=== PATIENT | male | born 1975 | race African-American/Black ===

== ENCOUNTER 2020-04-13 14:44 | Emergency (ER) | payer SELFPAY ==
--- NOTE | 2020-04-13 15:35 | ER Document Report ---
ED Medical Screen (RME) - General Chief Complaint: Shoulder Pain Stated Complaint: SHOULDER PAIN Time Seen by Provider: 04/13/20 15:24 Mode of Arrival: Wheelchair Information source: Patient Notes: 45-year-old male presented to ED for complaint of pain to the left shoulder and chest. He states he feels like he has a dislocated shoulder and he also has pain to the left chest area. 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 He is on Xarelto. His pulse is in the 60s. 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 He is a former smoker he just recently quit. He does drink alcohol about monthly and smokes marijuana daily. He is alert oriented respirations regular nonlabored speaking in full sentences. Blood pressure when I rechecked it was 152/90 in the right arm I have greeted and performed a rapid initial assessment of this patient. A comprehensive ED assessment and evaluation of the patient, analysis of test results and completion of medical decision making process will be conducted by an additional ED providers. - Related Data Allergies/Adverse Reactions: banana Allergy (Verified 04/13/20 15:19) Penicillins Allergy (Verified 04/13/20 15:19) Past Medical History - Social History Frequency of alcohol use: Rare Drug Abuse: Marijuana Physical Exam - Vital signs Vitals: Temp Pulse Resp BP Pulse Ox 98.4 F 65 18 163/103 H 97 04/13/20 15:19 04/13/20 15:19 04/13/20 15:19 04/13/20 15:19 04/13/20 15:19 Course - Vital Signs Vital signs: Temp Pulse Resp BP Pulse Ox 98.4 F 65 18 152/90 H 97 04/13/20 15:19 04/13/20 15:19 04/13/20 15:19 04/13/20 15:30 04/13/20 15:19
[2020-04-13 16:09] LABS: ABSOLUTE EOSINOPHILS # (AUTO) 0.1 10^3/uL (0.0-0.6); ABSOLUTE LYMPHOCYTES (AUTO) 2.2 10^3/uL (0.5-4.7); ABSOLUTE MONOCYTES (AUTO) 0.7 10^3/uL (0.1-1.4); ABSOLUTE NEUT (AUTO) 3.7 10^3/uL (1.7-8.2); BASOPHILS % (AUTO) 0.5 % (0-2); EOSINOPHILS % (AUTO) 2.2 % (0-6); HEMATOCRIT 38.8 % (37.9-51.0); HEMOGLOBIN 12.7 g/dL (13.5-17.0); LYMPHOCYTES % (AUTO) 32.9 % (13-45); MEAN CORPUSCULAR HEMOGLOBIN 24.2 pg (27.0-33.4); MEAN CORPUSCULAR HGB CONC 32.8 g/dL (32.0-36.0); MEAN CORPUSCULAR VOLUME 74 fl (80-97); MONOCYTES % (AUTO) 9.9 % (3-13); PLATELET COUNT 208 10^3/uL (150-450); RED BLOOD COUNT 5.26 10^6/uL (4.35-5.55); RED CELL DISTRIBUTION WIDTH 15.7 % (11.5-14.0); SEGMENTED NEUTROPHILS % (AUTO) 54.5 % (42-78); TOTAL CELLS COUNTED % (AUTO) 100 %; WHITE BLOOD COUNT 6.8 10^3/uL (4.0-10.5)
--- NOTE | 2020-04-13 16:13 | RADIOLOGY REPORT (SQ) ---
EXAM DESCRIPTION: CHEST 2 VIEWS IMAGES COMPLETED DATE/TIME: 04/13/2020 4:03 pm REASON FOR STUDY: chest pain COMPARISON: None. EXAM PARAMETERS: NUMBER OF VIEWS: two views TECHNIQUE: Digital Frontal and Lateral radiographic views of the chest acquired. RADIATION DOSE: NA LIMITATIONS: none FINDINGS: LUNGS AND PLEURA: No opacities, masses or pneumothorax. No pleural effusion. MEDIASTINUM AND HILAR STRUCTURES: No masses or contour abnormalities. HEART AND VASCULAR STRUCTURES: Heart normal size. No evidence for failure. BONES: No acute findings. HARDWARE: None in the chest. OTHER: No other significant finding. IMPRESSION: 1. NO ACUTE RADIOGRAPHIC FINDING IN THE CHEST. TECHNICAL DOCUMENTATION: JOB ID: [id number] 2010 [employer]- All Rights Reserved Reading location - IP/workstation name: [email or web address]
--- NOTE | 2020-04-13 16:15 | RADIOLOGY REPORT (SQ) ---
EXAM DESCRIPTION: SHOULDER LEFT 2 OR MORE VIEWS IMAGES COMPLETED DATE/TIME: 04/13/2020 4:03 pm REASON FOR STUDY: Left shoulder feels dislocated pain COMPARISON: None. NUMBER OF VIEWS: Three views. TECHNIQUE: Internal rotation, external rotation, and Y view images acquired of the left shoulder. LIMITATIONS: Limited examination on the Y-view due to patient positioning. FINDINGS: MINERALIZATION: Normal. BONES: No acute fracture. No worrisome bone lesions. JOINTS: Limited position on the wire image due to patient positioning. VISUALIZED LUNGS AND RIBS: No pneumothorax. No rib fracture. SOFT TISSUES: No radiopaque foreign body. OTHER: No other significant finding. IMPRESSION: 1. No acute osseous findings. Additional imaging if clinically indicated. TECHNICAL DOCUMENTATION: JOB ID: [id number] 2010 [employer]- All Rights Reserved Reading location - IP/workstation name: [email or web address]
[2020-04-13 16:35] LABS: ALKALINE PHOSPHATASE 65 U/L (38-126); ANION GAP 6 (5-19); ASPARTATE AMINO TRANSFERASE 49 U/L (17-59); BILIRUBIN,DIRECT 0.3 mg/dL (0.0-0.4); BILIRUBIN,TOTAL 0.7 mg/dL (0.2-1.3); BLOOD UREA NITROGEN 17 mg/dL (7-20); CALCIUM 9.4 mg/dL (8.4-10.2); CARBON DIOXIDE 32 mmol/L (22-30); CHLORIDE 105 mmol/L (98-107); GLUCOSE 95 mg/dL (75-110); POTASSIUM 3.5 mmol/L (3.6-5.0); TOTAL PROTEIN 7.3 g/dL (6.3-8.2)
--- NOTE | 2020-04-13 16:46 | EKG REPORT ---
SEVERITY:- NORMAL ECG - SINUS RHYTHM : Confirmed by: Shiv Mendoza MD 13-Apr-2020 16:45:25
[2020-04-13] MEDS ORDERED: ACETAMINOPHEN 325 MG TABLET PO ONE (20:52)
--- NOTE | 2020-04-13 21:48 | RADIOLOGY REPORT (SQ) ---
CT CHEST ANGIOGRAPHY WITHOUT THEN WITH IV CONTRAST HISTORY: Shortness of breath. COMPARISON: None. TECHNIQUE: CT angiogram of the chest with IV contrast. 3-D MIP images were obtained in coronal and sagittal reconstructions. This exam was performed according to our departmental dose-optimization program, which includes automated exposure control, adjustment of the mA and/or kV according to patient size and/or use of iterative reconstruction technique. FINDINGS: No filling defects are identified in the pulmonary trunk, main left and right pulmonary arteries, or the segmental branches. There are 1.5 cm hypodense nodules in the bilateral thyroid lobes. No mediastinal or hilar adenopathy. The heart size is normal without pericardial effusion. The thoracic aorta is normal caliber. No consolidation, pleural effusion, or pneumothorax is identified. The visualized upper abdomen demonstrates no acute findings. No acute osseous findings are seen. IMPRESSION: 1. No acute pulmonary embolism. 2. Clear lungs. 3. 1.5 cm incidental thyroid nodule. Recommend thyroid US. Reference: J Am Porfirio Radiol. 2015 Sep;12(2): 143-50
--- NOTE | 2020-04-13 22:04 | ER Document Report ---
ED Extremity Problem, Upper - General Chief Complaint: Chest Pain > 30 Stated Complaint: SHOULDER PAIN Time Seen by Provider: 04/13/20 15:24 Primary Care Provider: JOSS TATE MD [ACTIVE STAFF] - Follow up as needed JUAN VALERIO MD [ACTIVE STAFF] - Follow up as needed Mode of Arrival: Wheelchair Information source: Patient Notes: 45-year-old male past medical history significant for hypertension and right lower leg DVT currently on Xarelto presents to the emergency room complaining of left shoulder pain for the past 3 weeks. States he woke up with the pain 3 weeks ago went away after 2 days and has been progressively worse since. He denies any acute trauma or injury. Has been taking aspirin with minimal relief. Patient is right-handed. No history of previous left shoulder injury. Patient states the pain does radiate up into his neck and into the left side of his chest. He describes the pain as a sharp stabbing pain. Denies any nausea, vomiting, no shortness of breath, no diaphoresis. Denies any recent travel. No recent surgery. No hemoptysis. No local primary care physician. States his previous primary care physician in [place] has been mailing him samples of his Xarelto and refilling his blood pressure medications without a visit. States he has been taking his medications as prescribed. TRAVEL OUTSIDE OF THE [place] IN LAST 30 DAYS: No - Related Data Allergies/Adverse Reactions: banana Allergy (Verified 04/13/20 15:19) Penicillins Allergy (Verified 04/13/20 15:19) Past Medical History - General Information source: Patient - Social History Smoking Status: Former Smoker Frequency of alcohol use: Rare Drug Abuse: Marijuana Family History: Hyperlipidemia, Hypertension, Other - PE - Past Medical History Cardiac Medical History: Reports: Hx Hypertension Review of Systems - Review of Systems Constitutional: No symptoms reported EENT: No symptoms reported Cardiovascular: Chest pain Respiratory: No symptoms reported Gastrointestinal: No symptoms reported Musculoskeletal: Joint pain Skin: No symptoms reported Neurological/Psychological: No symptoms reported -: Yes All other systems reviewed and negative Physical Exam - Vital signs Vitals: Temp Pulse Resp BP Pulse Ox 98.4 F 65 18 163/103 H 97 04/13/20 15:19 04/13/20 15:19 04/13/20 15:19 04/13/20 15:19 04/13/20 15:19 - General General appearance: Appears well, Alert In distress: Mild - HEENT Head: Normocephalic, Atraumatic Eyes: Normal Pupils: PERRL - Respiratory Respiratory status: No respiratory distress Chest status: Nontender Breath sounds: Normal Chest palpation: Normal - Cardiovascular Rhythm: Regular Heart sounds: Normal auscultation Murmur: No - Extremities General upper extremity: Normal color, Normal temperature General lower extremity: Normal inspection, Nontender, Normal color, Normal ROM, Normal temperature, Normal weight bearing. No: Lisa's sign Shoulder: Tender - Tenderness on palpation to the left posterior scapula. There is tenderness over the left AC joint, painful range of motion with abduction and adduction as well as internal and external rotation of the left shoulder., Limited ROM - Secondary to pain - Neurological Neuro grossly intact: Yes Cognition: Normal Orientation: AAOx4 [place] Coma Scale Eye Opening: Spontaneous Sid Coma Scale Verbal: Oriented [place] Coma Scale Motor: Obeys Commands Sid Coma Scale Total: 15 Speech: Normal Motor strength normal: LUE, RUE, LLE, RLE Sensory: Normal Notes: Positive left radial pulse. Capillary refill less than 3 seconds. - Skin Skin Temperature: Warm Skin Moisture: Dry Skin Color: Normal Course - Re-evaluation Re-evalutation: 04/13/2020 20:50 Reviewed negative x-ray results and negative cardiac work-up with patient. Patient concerned for PE as he is currently on Xarelto for DVTs. Positive family history for PEs. He denies any recent travel, no hemoptysis. Will get CTA to rule out PE secondary to risk factors. 04/13/20 22:11 HEART Score: History ECG 0 Age 1 Risk Factors 2 Troponin 0 Total: 3 If HEART score is = 3 AND both tronponin measurments are normal, the 30 day risk of a major adverse cardiac event (all-cause mortality, myocardia infarction or need for coronary revscularization) is < 1% (Sensitivity 100%, NPV 100%). Chest pain in a patient without evidence of cardiac or other serious etiology on workup today. I discussed with patient that, based on their age, risk factors and emergency department testing today, the likelihood that their symptoms are related to a heart attack is very low (estimated risk of heart attack or over the next 30 days of less than 1%). The patient demonstrates decision making capacity and has verbalized an understanding of these risks to me. Based on this, the patient has chosen to follow-up as an outpatient. Usual chest pain return precautions reviewed. The patient states understanding and agreement with this plan. 04/13/20 22:13 Patient is resting comfortably with decreased pain. All test results were reviewed with the patient. Counseled on the importance of following up outpatient with an orthopedist for his persistent left shoulder pain. Also counseled importance of following outpatient with a primary care physician for his persistent hypertension. Patient states he has not taken his blood pressure medication yet today. He is asymptomatic with his elevated blood pressure. No active chest pain, shortness of breath, no difficulty breathing. On-call physicians were provided. Can take Tylenol as needed for pain. Reviewed EKG, labs, and negative CTA results with patient. Patient was given strict return to the emergency room guidelines. Return for any new or worsening symptoms. All questions were answered. Patient verbalized understanding and agrees with plan of care. 04/13/20 22:37 - Vital Signs Vital signs: Temp Pulse Resp BP Pulse Ox 98.4 F 65 15 163/104 H 97 04/13/20 15:19 04/13/20 15:19 04/13/20 22:09 04/13/20 22:09 04/13/20 22:09 - Laboratory Result Diagrams: 04/13/20 15:49 04/13/20 15:49 Laboratory results interpreted by me: 04/13/20 04/13/20 15:49 15:49 Hgb 12.7 L MCV 74 L MCH 24.2 L RDW 15.7 H Potassium 3.5 L Carbon Dioxide 32 H ALT 53 H - Diagnostic Test Radiology reviewed: Reports reviewed - EKG Interpretation by Me EKG shows normal: Sinus rhythm Rate: Normal When compared to previous EKG there are: Previous EKG unavailable Additional EKG results interpreted by me: 04/13/20 22:10 EKG was interpreted by ER physician Dr. Moseley No acute STEMI Normal sinus rhythm Rate [address] wave abnormalities No previous EKG for comparison. Discharge - Discharge Clinical Impression: Left shoulder pain Qualifiers: Chronicity: chronic Qualified Code(s): M25.512 - Pain in left shoulder Chest pain Qualifiers: Chest pain type: unspecified Qualified Code(s): R07.9 - Chest pain, unspecified Hypertension Qualifiers: Hypertension type: unspecified Qualified Code(s): I10 - Essential (primary) hypertension Condition: Stable Disposition: HOME, SELF-CARE Instructions: Chest Pain of Unclear Cause ([facility]), Rotator Cuff Injury ([facility]), Exercise Program for the Shoulder ([facility]) Additional Instructions: Tylenol as needed for pain. Outpatient follow-up with orthopedics as discussed. Also recommend outpatient follow-up with a primary care physician for management of your hypertension and DVTs. You were provided with on-call physicians. Return to the emergency room for any new or worsening symptoms. Forms: Return to Work Referrals: JOSS TATE MD [ACTIVE STAFF] - Follow up as needed JUAN VALERIO MD [ACTIVE STAFF] - Follow up as needed
[2020-04-13 22:23] VITALS: BP 163/104
== END 2020-04-13 22:28 | disposition home or self-care (01) ==
LOC: ER 14:44
DX: M25.512 Pain in left shoulder (principal); G89.29 Other chronic pain; R07.9 Chest pain, unspecified; I10 Essential (primary) hypertension; F12.10 Cannabis abuse, uncomplicated; I82.401 Acute embolism and thrombosis of unspecified deep veins of right lower extremity; Z79.01 Long term (current) use of anticoagulants; Z79.899 Other long term (current) drug therapy; Z87.891 Personal history of nicotine dependence; Z91.018 Allergy to other foods; Z88.0 Allergy status to penicillin
CPT/HCPCS: 36415; 71046; 71275; 80053; 83735; 84484; 85025; 93005; 93010; 99285

== ENCOUNTER 2020-08-18 20:17 | Emergency (ER) | payer OTHER ==
--- NOTE | 2020-08-18 20:57 | ER Document Report ---
ED Medical Screen (RME) - General Chief Complaint: Abdominal Pain Stated Complaint: STOMACH PAIN, VOMITING Time Seen by Provider: 08/18/20 20:52 Mode of Arrival: Ambulatory Information source: Patient TRAVEL OUTSIDE OF THE [place] IN LAST 30 DAYS: No - HPI Patient complains to provider of: abdominal pain Notes: 08/18/20 20:56 Patient here with complaints of upper abdominal pain that started about 3 hours ago. He states the pain was sudden onset. The pain is now to the entire abdomen. Is had nausea, but no vomiting or diarrhea. No fever. No dysuria or hematuria. No prior abdominal surgeries. Patient has been out of his 4 blood pressure medications for the last several weeks. Exam: Nontoxic, patient appears to be quite uncomfortable. Diffuse tenderness to palpation on limited triage abdominal exam. Lungs cardiac throughout. Heart sounds normal. An initial examination was made on the patient as part of the triage process, and it was determined a more comprehensive evaluation was necessary. Initial orders were placed and patient was transferred to another provider in the ED who assumed care and finished evaluation and plan. - Related Data Allergies/Adverse Reactions: banana Allergy (Verified 04/13/20 15:19) Penicillins Allergy (Verified 04/13/20 15:19) Home Medications: 4 BP MEDS (OUT OF MEDS X 2 DAYS) Past Medical History - Social History Chew tobacco use (# tins/day): No Frequency of alcohol use: None Drug Abuse: None - Past Medical History Cardiac Medical History: Reports: Hx Hypertension Physical Exam - Vital signs Vitals: Temp Pulse Resp BP Pulse Ox 97.8 F 74 18 203/128 H 99 08/18/20 20:17 08/18/20 20:17 08/18/20 20:17 08/18/20 20:17 08/18/20 20:17 Course - Vital Signs Vital signs: Temp Pulse Resp BP Pulse Ox 97.8 F 74 18 203/128 H 99 08/18/20 20:50 08/18/20 20:17 08/18/20 20:17 08/18/20 20:17 08/18/20 20:17
[2020-08-18 21:22] LABS: ABSOLUTE LYMPHOCYTES (AUTO) 1.6 10^3/uL (0.5-4.7); ABSOLUTE MONOCYTES (AUTO) 0.5 10^3/uL (0.1-1.4); ABSOLUTE NEUT (AUTO) 5.5 10^3/uL (1.7-8.2); BASOPHILS % (AUTO) 0.5 % (0-2); EOSINOPHILS % (AUTO) 0.5 % (0-6); HEMATOCRIT 41.6 % (37.9-51.0); HEMOGLOBIN 13.6 g/dL (13.5-17.0); LYMPHOCYTES % (AUTO) 21.2 % (13-45); MEAN CORPUSCULAR HEMOGLOBIN 23.5 pg (27.0-33.4); MEAN CORPUSCULAR HGB CONC 32.7 g/dL (32.0-36.0); MEAN CORPUSCULAR VOLUME 72 fl (80-97); PLATELET COUNT 211 10^3/uL (150-450); RED CELL DISTRIBUTION WIDTH 15.5 % (11.5-14.0); SEGMENTED NEUTROPHILS % (AUTO) 70.8 % (42-78); TOTAL CELLS COUNTED % (AUTO) 100 %; WHITE BLOOD COUNT 7.8 10^3/uL (4.0-10.5)
[2020-08-18 21:27] LABS: APPEARANCE,URINE CLEAR; BILIRUBIN,URINE NEGATIVE (NEGATIVE); COLOR,URINE STRAW; GLUCOSE, URINE NEGATIVE (NEGATIVE); KETONES,URINE NEGATIVE (NEGATIVE); LEUKOCYTE ESTERASE,URINE NEGATIVE (NEGATIVE); NITRITE,URINE NEGATIVE (NEGATIVE); PROTEIN,URINE 100 mg/dL (NEGATIVE); URINE SPECIFIC GRAVITY 1.016; UROBILINOGEN,URINE NEGATIVE mg/dL (<2.0)
[2020-08-18 21:30] LABS: ALBUMIN 4.3 g/dL (3.5-5.0); ALKALINE PHOSPHATASE 101 U/L (38-126); ANION GAP 6 (5-19); ASPARTATE AMINO TRANSFERASE 40 U/L (17-59); BILIRUBIN,DIRECT 0.2 mg/dL (0.0-0.4); BILIRUBIN,TOTAL 0.5 mg/dL (0.2-1.3); BLOOD UREA NITROGEN 12 mg/dL (7-20); CALCIUM 9.4 mg/dL (8.4-10.2); CARBON DIOXIDE 28 mmol/L (22-30); CHLORIDE 103 mmol/L (98-107); GLUCOSE 145 mg/dL (75-110); POTASSIUM 3.4 mmol/L (3.6-5.0)
[2020-08-18] MEDS ORDERED: ONDANSETRON HCL INJ/PF 4 MG/2 ML SDV IV ONE (22:09)
[2020-08-18] MEDS ORDERED: NORMAL SALINE 1000 ML 1,000 ML IV ONE (22:09)
[2020-08-18] MEDS ORDERED: MORPHINE SULFATE 10 MG/ML INJ IV ONE (22:09)
--- NOTE | 2020-08-18 22:14 | ER Document Report ---
ED GI/ - General Chief Complaint: Abdominal Pain Stated Complaint: STOMACH PAIN, VOMITING Time Seen by Provider: 08/18/20 20:52 Primary Care Provider: [facility] [Provider Group] - Follow up in 1 week [facility] [Provider Group] - Follow up as needed Mode of Arrival: Ambulatory Notes: Patient is a 45-year-old male that comes emergency department chief complaint of sharp pain in the upper abdomen that started at around 5 PM after he had started eating. He states he was eating "[place] food". Patient states that he vomited and gagged several times. He states the pain seems like it radiates down his abdomen as well now. He denies flank pain, chest pain, fever/chills. He had a normal bowel movement earlier today. He denies any abdominal surgeries. Patient states he is on multiple blood pressure medications and has been out for a few weeks. He denies any other medical history. TRAVEL OUTSIDE OF THE [place] IN LAST 30 DAYS: No - Related Data Allergies/Adverse Reactions: banana Allergy (Verified 04/13/20 15:19) Penicillins Allergy (Verified 04/13/20 15:19) Home Medications: 4 BP MEDS (OUT OF MEDS X 2 DAYS) Past Medical History - General Information source: Patient - Social History Smoking Status: Former Smoker Chew tobacco use (# tins/day): No Frequency of alcohol use: None Drug Abuse: None Lives with: Family Family History: Hyperlipidemia, Hypertension, Other - PE Patient has homicidal ideation: No - Past Medical History Cardiac Medical History: Reports: Hx Hypertension Surgical Hx: Negative - Immunizations Hx Diphtheria, Pertussis, Tetanus Vaccination: Yes Physical Exam - Vital signs Vitals: Temp Pulse Resp BP Pulse Ox 97.8 F 74 18 203/128 H 99 08/18/20 20:17 08/18/20 20:17 08/18/20 20:17 08/18/20 20:17 08/18/20 20:17 Course - Vital Signs Vital signs: Temp Pulse Resp BP Pulse Ox 98.1 F 74 18 151/108 H 99 08/18/20 23:01 08/18/20 20:17 08/18/20 23:01 08/19/20 01:01 08/19/20 01:01 - Laboratory Results Result Diagrams: 08/18/20 21:00 08/18/20 21:00 Laboratory Results Interpreted: 08/18/20 08/18/20 08/18/20 21:00 21:00 21:00 RBC 5.80 H MCV 72 L MCH 23.5 L RDW 15.5 H Potassium 3.4 L Glucose 145 H Urine Protein 100 H Critical Laboratory Results Reviewed: No Critical Results - Radiology Results Critical Radiology Results Reviewed: No Critical Results Discharge - Discharge Clinical Impression: Upper abdominal pain, Essential hypertension Vomiting Qualifiers: Vomiting type: unspecified Vomiting Intractability: non-intractable Nausea presence: with nausea Qualified Code(s): R11.2 - Nausea with vomiting, unspecifi ed Condition: Stable Disposition: HOME, SELF-CARE Additional Instructions: Based on your work-up and your response to treatment I believe that you have gallbladder dyskinesis. The gallbladder does not have stones or sludge at this time. I recommend that you avoid any fatty, greasy, fried, oily foods in your diet or this could cause gallbladder pain. I recommend that you have a primary care follow-up (see clinic referral) and have a HIDA scan to diagnosis for possible referral to the surgical clinic. You can take Toradol if needed for pain, Phenergan if needed for nausea. Please also fill and take your blood pre ssure medications. Return for any concerning symptoms including severe worsening pain, uncontrolled vomiting, fever, or any other concerning or worsening symptoms. Prescriptions: Ketorolac Tromethamine [Toradol 10 mg Tablet] 10 mg PO Q8HP PRN #30 tablet PRN Reason: Chlorthalidone [Hygroton 25 mg Tablet] 50 mg PO DAILY #60 tablet Metoprolol Succinate 100 mg PO DAILY #30 tab.er.24h Amlodipine Besylate [Norvasc 10 mg Tablet] 10 mg PO DAILY #30 tablet Olmesartan Medoxomil 20 mg PO DAILY #30 tablet Promethazine HCl [Phenergan 25 mg Tablet] 25 mg PO Q6H PRN #20 tablet PRN Reason: Referrals: [facility] [Provider Group] - Follow up as needed [facility] [Provider Group] - Follow up in 1 week
--- NOTE | 2020-08-18 22:59 | RADIOLOGY REPORT (SQ) ---
EXAM DESCRIPTION: U/S ABDOMEN LIMITED W/O DOP CLINICAL HISTORY: 45 years Male RUQ pain, vomiting TECHNIQUE: Right upper quadrant ultrasound was performed. COMPARISON: None. FINDINGS: Pancreas: Poorly visualized due to overlying bowel gas. Liver: Homogeneous in appearance measuring up to 15.7 cm. Portal venous flow is hepatopedal, normal. Gallbladder: normal with no gallstones or sonographic evidence for acute cholecystitis. No pericholecystic fluid. No sonographic Rodriguez's sign. Common bile duct: 2.8 mm. Right kidney: Normal in appearance measuring up to 11.1 cm. No hydronephrosis. IMPRESSION: 1. Normal right upper quadrant ultrasound.
[2020-08-18] MEDS ORDERED: SUCRALFATE 1 GM TABLET PO ONE (23:17)
[2020-08-18] MEDS ORDERED: CHLORTHALIDONE 25 MG TABLET PO ONE (23:18)
[2020-08-18] MEDS ORDERED: METOPROLOL SUCCINATE 50 MG TAB.SR.24H PO ONE (23:18)
[2020-08-18] MEDS ORDERED: AMLODIPINE BESYLATE 10 MG TABLET PO ONE (23:19)
[2020-08-19] MEDS ORDERED: KETOROLAC TROMETHAMINE INJ/PF 30 MG/1 ML SDV IV ONE (00:05)
[2020-08-19 01:54] VITALS: BP 151/108
== END 2020-08-19 02:05 | disposition home or self-care (01) ==
LOC: ER 20:17
DX: R10.10 Upper abdominal pain, unspecified (principal); R11.2 Nausea with vomiting, unspecified; I10 Essential (primary) hypertension; Z88.0 Allergy status to penicillin
CPT/HCPCS: 99285; 96361; 96374; 96375 ×2; 36415; 83690; 85025; 80053; 81001; 76705; J1885; J2270; J2405; J7030